=== PATIENT | female | born 1985 | race Caucasian/White ===

== ENCOUNTER 2022-07-12 09:09 | Emergency (ER) | payer SELFPAY ==
[2022-07-12] MEDS ORDERED: Ondansetron ODT 4 MG TAB ONE (10:03)
== END 2022-07-12 10:38 | disposition home or self-care (01) ==
LOC: CSHERS 09:09
DX: J11.1 Influenza due to unidentified influenza virus with other respiratory manifestations (principal)
CPT/HCPCS: 99283; Q0162